=== PATIENT | female | born 1960 | race Caucasian/White ===

== ENCOUNTER → 2016-12-14 | Outpatient (CLI) | payer OTHER ==
[~2016-12-14] MED LIST: DORZ2SOL20 OPB; LATA0.009 OPB; LOSA50TA6 PO; METF1TAB53 PO; SIMV40TA2 PO
[2016-12-14 13:02] LABS: ESTIMATED AVERAGE GLUCOSE 137 mg/dl; HA1C FLAG Normal (Normal)
[2016-12-14 13:07] LABS: CALCIUM 9.1 mg/dl (8.5-10.1)
[2016-12-14 13:11] LABS: BLOOD UREA NITROGEN 48 mg/dl (7-18); BUN/CREATININE RATIO 34.1 (10-20); CARBON DIOXIDE 22 mmol/L (21-32); CHLORIDE 106 mmol/L (98-107); CHOLESTEROL 141 mg/dl (0-200); GLUCOSE 119 mg/dl (70-99); POTASSIUM 4.2 mmol/L (3.5-5.1); SODIUM 137 mmol/L (136-145); TRIGLYCERIDES 110 mg/dl (0-150); VERY LOW DENSITY LIPOPROT CALC 22 mg/dl
[2016-12-14 13:17] LABS: CHOLESTEROL/HDL RATIO 3.2; HDL CHOLESTEROL 44 mg/dl; LDL CHOLESTEROL CALCULATED 75 mg/dl
== END | disposition home or self-care (01) ==
LOC: C.LABPVFM 07:18
PROVIDERS: ATTEND Nurse Practitioner
DX: E78.5 Hyperlipidemia, unspecified (principal); I10 Essential (primary) hypertension; E11.9 Type 2 diabetes mellitus without complications

== ENCOUNTER → 2016-12-24 | Outpatient (CLI) | payer OTHER ==
[2016-12-24 12:56] LABS: BASO % 0.3 %; BASO ABS # 0.02 K/uL (0-0.2); COMPLETE YES; EOS % 2.7 %; HEMATOCRIT 28.4 % (37-47); IG% 0.2 %; LYMPH % 14.1 %; LYMPH ABS # 0.88 K/uL (1.2-3.4); MEAN CELL VOLUME 90.4 fL (80-100); MEAN CORPUSCULAR HEMOGLOBIN 30.3 pg (25-34); MEAN CORPUSCULAR HGB CONC 33.5 g/dl (32-36); MEAN PLATELET VOLUME 9.5 fL (7.4-10.4); MONO % 6.9 %; NEUT % 75.8 %; PLATELET COUNT 201 K/uL (130-400); RED BLOOD COUNT 3.14 M/uL (4.2-5.4); WHITE BLOOD COUNT 6.24 K/uL (4.8-10.8)
[2016-12-24 13:32] LABS: URINE PROTIEN/CREAT RATIO 5.4 (0-0.2); URINE TOTAL PROTEIN 102.1 mg/dl (0-11.9)
[2016-12-24 13:46] LABS: URINE APPEARANCE CLEAR (CLEAR); URINE BILIRUBIN NEG (NEG); URINE COLOR YELLOW; URINE NITRITE NEG (NEG); URINE SPECIFIC GRAVITY 1.007 (1.000-1.030); UROBILINOGEN NEG (NEG)
[2016-12-24 13:50] LABS: MANUAL MICROSCOPIC REQUIRED? NO; REVIEW REQ? NO
== END | disposition home or self-care (01) ==
LOC: C.LABPVFM 07:56
PROVIDERS: ATTEND Nurse Practitioner
DX: I10 Essential (primary) hypertension (principal); N28.9 Disorder of kidney and ureter, unspecified; R60.0 Localized edema

== ENCOUNTER → 2016-12-28 | Outpatient (CLI) | payer OTHER ==
[2016-12-28 12:58] LABS: FERRITIN 99.3 ng/ml (8.0-388.0)
== END | disposition home or self-care (01) ==
LOC: C.LABPVFM 07:13
PROVIDERS: ATTEND Nurse Practitioner
DX: D64.9 Anemia, unspecified (principal); R94.6 Abnormal results of thyroid function studies

== ENCOUNTER → 2016-12-29 | Outpatient (CLI) | payer OTHER ==
--- NOTE | 2016-12-29 08:37 | DIAGNOSTIC IMAGING REPORT ---
ULTRASOUND KIDNEYS AND BLADDER CLINICAL HISTORY: Hypertension. Renal insufficiency. COMPARISON STUDY: No priors. TECHNIQUE: Real-time, grayscale, and color flow sonography of the kidneys and bladder is performed. Images are reviewed in the transverse and longitudinal planes. FINDINGS: Kidneys: The kidneys demonstrate mild cortical atrophy and are normal in echotexture. The right kidney measures 11.7 x 5.5 x 6.6 cm and the left kidney measures 12.0 x 5.9 x 6.5 cm. There is no hydronephrosis. No shadowing renal calculi are identified. There is no sonographic evidence of contour deforming renal mass lesion. No perinephric fluid is identified. Bladder: The partially decompressed bladder is grossly normal in appearance. Bilateral ureteral jets were seen. IMPRESSION: 1. The kidneys demonstrate mild cortical atrophy and are without hydronephrosis. 2. The bladder is normal as visualized. Electronically signed by: Pedro Marsh M.D. 12/29/2016 8:36 AM Dictated Date/Time: 12/29/2016 8:35 AM
== END | disposition home or self-care (01) ==
LOC: C.ULTR 07:52
PROVIDERS: ATTEND Nurse Practitioner
DX: I10 Essential (primary) hypertension (principal); N28.9 Disorder of kidney and ureter, unspecified

== ENCOUNTER → 2017-01-26 | Outpatient (CLI) | payer OTHER ==
[2017-01-26 12:58] LABS: URINE TOTAL PROTEIN 179.9 mg/dl (0-11.9)
[2017-01-26 13:35] LABS: URINE TOTAL PROTEIN CALC 3957.8 mg/24 hr (0-149.1)
== END | disposition home or self-care (01) ==
LOC: C.LABPVFM 12:40
PROVIDERS: ATTEND Internal Medicine Nephrology
DX: R80.9 Proteinuria, unspecified (principal)

== ENCOUNTER → 2017-02-06 | Outpatient (CLI) | payer OTHER ==
[2017-02-06 13:22] LABS: BLOOD UREA NITROGEN 48 mg/dl (7-18); BUN/CREATININE RATIO 34.2 (10-20); CALCIUM 8.8 mg/dl (8.5-10.1); CARBON DIOXIDE 22 mmol/L (21-32); CHLORIDE 111 mmol/L (98-107); GLUCOSE 136 mg/dl (70-99); PHOSPHORUS 4.1 mg/dl (2.5-4.9); POTASSIUM 4.7 mmol/L (3.5-5.1); SODIUM 141 mmol/L (136-145)
[2017-02-06 13:36] LABS: THYROID STIMULATING HORMONE 7.06 uIu/ml (0.300-4.500)
== END | disposition home or self-care (01) ==
LOC: C.LABPVFM 07:29
PROVIDERS: ATTEND Nurse Practitioner
DX: Z11.59 Encounter for screening for other viral diseases (principal); R94.6 Abnormal results of thyroid function studies; I10 Essential (primary) hypertension

== ENCOUNTER → 2017-03-06 | Outpatient (CLI) | payer OTHER ==
[2017-03-06 13:11] LABS: BLOOD UREA NITROGEN 52 mg/dl (7-18); BUN/CREATININE RATIO 32.6 (10-20); CALCIUM 8.8 mg/dl (8.5-10.1); CARBON DIOXIDE 26 mmol/L (21-32); CHLORIDE 104 mmol/L (98-107); GLUCOSE 147 mg/dl (70-99); PHOSPHORUS 4.1 mg/dl (2.5-4.9); POTASSIUM 4.5 mmol/L (3.5-5.1); SODIUM 137 mmol/L (136-145)
[2017-03-06 13:52] LABS: URINE APPEARANCE CLEAR (CLEAR); URINE BILIRUBIN NEG (NEG); URINE COLOR YELLOW; URINE EPITHELIAL CELL AUTO >30 /lpf (0-5); URINE NITRITE NEG (NEG); URINE SPECIFIC GRAVITY 1.014 (1.000-1.030); UROBILINOGEN NEG (NEG); ZZUR CULT IF INDIC CLEAN CATCH NO
[2017-03-06 14:03] LABS: MANUAL MICROSCOPIC REQUIRED? NO; REVIEW REQ? NO
[2017-03-07 13:59] LABS: FREE KAPPA/LAMBDA RATIO 1.9 (0.26-1.65); FREE LAMBDA 64.8 MG/L (5.7-26.3)
[2017-03-07 16:37] LABS: ALBUMIN 3.5 G/DL (3.8-4.8); GAMMA GLOBULIN 1.5 G/DL (0.8-1.7); TOTAL PROTEIN 6.9 G/DL (6.2-8.3)
[2017-03-08 10:11] LABS: ALPHA-2-GLOBULIN % 3.58 %; CREATININE UR 29 MG/DL (20-320); GAMMA GLOBULIN % 12.49 %
== END | disposition home or self-care (01) ==
LOC: C.LABPVFM 07:18
PROVIDERS: ATTEND Internal Medicine Nephrology
DX: N18.3 Chronic kidney disease, stage 3 (moderate) (principal); R80.9 Proteinuria, unspecified

== ENCOUNTER → 2017-05-22 | Outpatient (CLI) | payer OTHER ==
[2017-05-22 13:01] LABS: BASO % 0.1 %; BASO ABS # 0.01 K/uL (0-0.2); HEMATOCRIT 25.8 % (37-47); IG% 0.3 %; LYMPH ABS # 1.05 K/uL (1.2-3.4); MEAN CELL VOLUME 90.5 fL (80-100); MEAN CORPUSCULAR HEMOGLOBIN 30.5 pg (25-34); MEAN CORPUSCULAR HGB CONC 33.7 g/dl (32-36); MEAN PLATELET VOLUME 9.8 fL (7.4-10.4); MONO % 7.3 %; NEUT % 74.3 %; PLATELET COUNT 181 K/uL (130-400); RED BLOOD COUNT 2.85 M/uL (4.2-5.4); WHITE BLOOD COUNT 7.02 K/uL (4.8-10.8)
[2017-05-22 13:25] LABS: COMPLETE YES
[2017-05-22 13:52] LABS: BLOOD UREA NITROGEN 51 mg/dl (7-18); BUN/CREATININE RATIO 32.6 (10-20); CALCIUM 8.8 mg/dl (8.5-10.1); CARBON DIOXIDE 21 mmol/L (21-32); CHLORIDE 106 mmol/L (98-107); CREATININE 1.55 mg/dl (0.60-1.20); GLUCOSE 118 mg/dl (70-99); POTASSIUM 4.2 mmol/L (3.5-5.1); SODIUM 136 mmol/L (136-145)
[2017-05-22 13:57] LABS: FERRITIN 125.1 ng/ml (8.0-388.0); PHOSPHORUS 3.7 mg/dl (2.5-4.9); TOTAL IRON BINDING CAPACITY 292 mcg/dl (250-450)
== END | disposition home or self-care (01) ==
LOC: C.LABPVFM 07:17
PROVIDERS: ATTEND Internal Medicine Nephrology
DX: E03.9 Hypothyroidism, unspecified (principal); N18.3 Chronic kidney disease, stage 3 (moderate); D64.9 Anemia, unspecified

== ENCOUNTER → 2017-05-26 | Outpatient (CLI) | payer OTHER ==
--- NOTE | 2017-05-29 14:55 | MAMMOGRAPHY REPORT ---
BILATERAL FIRST EVER DIGITAL SCREENING MAMMOGRAM TOMOSYNTHESIS WITH CAD: 05/26/2017 CLINICAL HISTORY: Routine screening. Baseline exam. TECHNIQUE: Breast tomosynthesis in addition to standard 2D mammography was performed. Current study was also evaluated with a Computer Aided Detection (CAD) system. COMPARISON: No prior exams were available for comparison. BREAST COMPOSITION: The tissue of both breasts is almost entirely fatty. FINDINGS: There is a partially visualized right axillary lymph node measuring at least 11 mm seen on the MLO view, for which additional spot compression tomosynthesis views and possible breast ultrasoun d are recommended to ensure that the lymph node is morphologically normal. The remainder of both breasts are negative, without suspicious masses, calcifications, or areas of ar chitectural distortion noted. Scattered bilateral benign-appearing calcifications are noted. IMPRESSION: ACR BI-RADS CATEGORY 0: INCOMPLETE EVALUATION: NEED ADDITIONAL IMAGING EVALUATION Partially visualized right axillary lymph node, for which additional imaging evaluation is recommende d. The patient will be called to schedule an appointment. Approximately 10% of breast cancers are not detected with mammography. A negative mammographic report should not delay biopsy if a clinically suggestive mass is present. Ning Ramires M.D. ah/:05/26/2017 16:57:58 Smt Operator: Liana HICKMAN(Isaura)(M), [facility] letter sent: Addl Imaging 0 BI-RADS Code: ACR BI-RADS Category 0: Incomplete Evaluation: Need Additional Imaging Evaluation
== END | disposition home or self-care (01) ==
LOC: C.MAMM 14:38
PROVIDERS: ATTEND Nurse Practitioner
DX: Z12.31 Encounter for screening mammogram for malignant neoplasm of breast (principal); R92.8 Other abnormal and inconclusive findings on diagnostic imaging of breast

== ENCOUNTER → 2017-07-03 | Outpatient (CLI) | payer OTHER ==
[2017-07-03 12:45] LABS: BASO % 0.2 %; BASO ABS # 0.01 K/uL (0-0.2); COMPLETE YES; EOS % 3.4 %; HEMATOCRIT 27.3 % (37-47); IG% 0.3 %; IMMATURE RETIC FRACTION 22.7 % (3.0-15.9); LYMPH % 19.3 %; LYMPH ABS # 1.14 K/uL (1.2-3.4); MEAN CELL VOLUME 94.8 fL (80-100); MEAN CORPUSCULAR HEMOGLOBIN 31.3 pg (25-34); MEAN PLATELET VOLUME 9.9 fL (7.4-10.4); MONO % 6.3 %; NEUT % 70.5 %; PLATELET COUNT 198 K/uL (130-400); RED BLOOD COUNT 2.88 M/uL (4.2-5.4); RETHE 31.7 PG (28.2-36.6); WHITE BLOOD COUNT 5.91 K/uL (4.8-10.8)
[2017-07-03 13:46] LABS: BLOOD UREA NITROGEN 57 mg/dl (7-18); BUN/CREATININE RATIO 30.3 (10-20); CALCIUM 8.8 mg/dl (8.5-10.1); CARBON DIOXIDE 23 mmol/L (21-32); CHLORIDE 106 mmol/L (98-107); CREATININE 1.88 mg/dl (0.60-1.20); GLUCOSE 144 mg/dl (70-99); MAGNESIUM 2.1 mg/dl (1.8-2.4); POTASSIUM 4.9 mmol/L (3.5-5.1); SODIUM 133 mmol/L (136-145)
[2017-07-03 13:47] LABS: PHOSPHORUS 4.3 mg/dl (2.5-4.9)
[2017-07-03 14:25] LABS: CREATININE, URINE 22.7 mg/dl; URINE PROTIEN/CREAT RATIO 2.4 (0-0.2); URINE TOTAL PROTEIN 55.1 mg/dl (0-11.9)
== END | disposition home or self-care (01) ==
LOC: C.LABPVFM 07:17
PROVIDERS: ATTEND Internal Medicine Nephrology
DX: D64.9 Anemia, unspecified (principal)

== ENCOUNTER → 2017-08-07 | Outpatient (CLI) | payer OTHER ==
[2017-08-07 13:21] LABS: ALBUMIN 3.3 gm/dl (3.4-5.0); BLOOD UREA NITROGEN 63 mg/dl (7-18); CALCIUM 8.9 mg/dl (8.5-10.1); CARBON DIOXIDE 21 mmol/L (21-32); CREATININE 1.87 mg/dl (0.60-1.20); GLUCOSE 104 mg/dl (70-99); PHOSPHORUS 4.1 mg/dl (2.5-4.9); POTASSIUM 5.3 mmol/L (3.5-5.1); SODIUM 139 mmol/L (136-145)
== END | disposition home or self-care (01) ==
LOC: C.LABPVFM 07:14
PROVIDERS: ATTEND Internal Medicine Nephrology
DX: E03.9 Hypothyroidism, unspecified (principal); N18.3 Chronic kidney disease, stage 3 (moderate)

== ENCOUNTER → 2017-09-11 | Outpatient (CLI) | payer OTHER ==
[2017-09-11 12:40] LABS: BLOOD UREA NITROGEN 75 mg/dl (7-18); CALCIUM 9.3 mg/dl (8.5-10.1); CARBON DIOXIDE 17 mmol/L (21-32); CREATININE 2.15 mg/dl (0.60-1.20); GLUCOSE 146 mg/dl (70-99); POTASSIUM 5.8 mmol/L (3.5-5.1); SODIUM 135 mmol/L (136-145)
== END | disposition home or self-care (01) ==
LOC: C.LABPVFM 07:11
PROVIDERS: ATTEND Internal Medicine Nephrology
DX: N18.3 Chronic kidney disease, stage 3 (moderate) (principal)

== ENCOUNTER → 2017-09-13 | Outpatient (CLI) | payer OTHER ==
[2017-09-13 16:05] LABS: ALBUMIN 3.5 gm/dl (3.4-5.0); BLOOD UREA NITROGEN 69 mg/dl (7-18); CALCIUM 9.3 mg/dl (8.5-10.1); CARBON DIOXIDE 20 mmol/L (21-32); CREATININE 2.08 mg/dl (0.60-1.20); GLUCOSE 99 mg/dl (70-99); POTASSIUM 5.6 mmol/L (3.5-5.1); SODIUM 139 mmol/L (136-145)
[2017-09-13 16:06] LABS: PHOSPHORUS 4.7 mg/dl (2.5-4.9)
== END | disposition home or self-care (01) ==
LOC: C.LAB 16:30
PROVIDERS: ATTEND Internal Medicine Nephrology
DX: N18.3 Chronic kidney disease, stage 3 (moderate) (principal)

== ENCOUNTER → 2017-09-25 | Outpatient (CLI) | payer OTHER ==
[2017-09-25 12:55] LABS: ALBUMIN 3.4 gm/dl (3.4-5.0); BLOOD UREA NITROGEN 68 mg/dl (7-18); CALCIUM 9.1 mg/dl (8.5-10.1); CARBON DIOXIDE 22 mmol/L (21-32); CREATININE 1.94 mg/dl (0.60-1.20); GLUCOSE 159 mg/dl (70-99); PHOSPHORUS 4.3 mg/dl (2.5-4.9); SODIUM 138 mmol/L (136-145)
== END | disposition home or self-care (01) ==
LOC: C.LABPVFM 07:12
PROVIDERS: ATTEND Internal Medicine Nephrology
DX: I10 Essential (primary) hypertension (principal)

== ENCOUNTER → 2017-10-09 | Outpatient (CLI) | payer OTHER ==
[2017-10-09 12:47] LABS: HEMOGLOBIN A1C 6.8 % (4.5-5.6)
[2017-10-09 13:00] LABS: ALBUMIN 3.3 gm/dl (3.4-5.0); BLOOD UREA NITROGEN 51 mg/dl (7-18); CALCIUM 9.5 mg/dl (8.5-10.1); CARBON DIOXIDE 23 mmol/L (21-32); CREATININE 1.83 mg/dl (0.60-1.20); GLUCOSE 131 mg/dl (70-99); PHOSPHORUS 3.8 mg/dl (2.5-4.9); SODIUM 136 mmol/L (136-145)
== END | disposition home or self-care (01) ==
LOC: C.LABPVFM 07:12
PROVIDERS: ATTEND Nurse Practitioner
DX: E78.5 Hyperlipidemia, unspecified (principal); E11.69 Type 2 diabetes mellitus with other specified complication; E11.22 Type 2 diabetes mellitus with diabetic chronic kidney disease; N18.3 Chronic kidney disease, stage 3 (moderate)

== ENCOUNTER → 2017-11-15 | Outpatient (CLI) | payer OTHER ==
[2017-11-15 09:25] LABS: BLOOD UREA NITROGEN 77 mg/dl (7-18); CALCIUM 9.2 mg/dl (8.5-10.1); CARBON DIOXIDE 20 mmol/L (21-32); CREATININE 2.19 mg/dl (0.60-1.20); GLUCOSE 154 mg/dl (70-99); POTASSIUM 4.5 mmol/L (3.5-5.1); SODIUM 140 mmol/L (136-145)
== END | disposition home or self-care (01) ==
LOC: C.LAB 16:20
PROVIDERS: ATTEND Internal Medicine Nephrology
DX: N18.3 Chronic kidney disease, stage 3 (moderate) (principal)

== ENCOUNTER → 2017-11-28 | Outpatient (CLI) | payer OTHER ==
--- NOTE | 2017-11-28 12:46 | MAMMOGRAPHY REPORT ---
UNILATERAL RIGHT DIGITAL DIAGNOSTIC MAMMOGRAM TOMOSYNTHESIS WITH CAD AND TARGETED RIGHT ULTRASOUND: CLINICAL HISTORY: 57-year-old woman presents for follow-up in the right breast/axilla, for a right ax illary tail/axillary lymph node that was newly visualized on the previous exam performed 05/26/2017. TECHNIQUE: Right breast tomosynthesis in addition to standard 2D mammography was performed. Current s vikki was also evaluated with a Computer Aided Detection (CAD) system. COMPARISON: Comparison is made to exams dated: 05/31/2017 mammogram, 05/31/2017 ultrasound, and 2016 mammogram - [facility]. BREAST COMPOSITION: The tissue of the right breast is almost entirely fatty. FINDINGS: An oval circumscribed 13 mm lymph node with central lucency is again identified in the supe rior posterior right breast, projecting over the pectoralis muscle on the MLO view. This is not visu alized in the CC projection. The lymph node is stable in size and appearance comparing to the spot c ompression tomosynthesis view obtained on 05/31/2017, and this most likely represents a newly visualiz ed lymph node as opposed to a new, abnormal lymph node. There are scattered benign rim and punctate microcalcifications in the right breast. No suspicious breast mass, architectural distortion or susp icious microcalcifications. Repeat targeted ultrasound was performed in the right upper outer quadrant and axillary region to kristian ssess the previously observed lymph node. In the midportion of the right axilla, a morphologically n ormal lymph node within the cortex measuring 1.7 mm is identified. The previously observed lymph nod e which corresponds with the mammographic finding is seen in the right axillary tail region, previous ly labeled right 9:00 breast, 15 cm from the nipple. This lymph node is unchanged in size and visual appearance. It currently measures 9.6 mm in length and has cortical thickness ranging from 2.2-2.6 mm. This is within the range of normal but given that this lymph node was newly visualized mammograp hically, another close follow-up is recommended to ensure longer stability. IMPRESSION: ACR-BI-RADS CATEGORY 3: PROBABLY BENIGN, TARGETED ULTRASOUND ACR-BI-RADS CATEGORY 3: PRO BABLY BENIGN There is a minimally prominent right axillary tail lymph node, visualized mammographically on the MLO view, that demonstrates normal morphology on ultrasound, with maximum cortical thickness of 2.6 mm o n the current exam. Given the mammographic and sonographic stability since the prior diagnostic work up dated 05/31/2017 this most likely represents a benign lymph node. Given slight prominence and new visualization mammographically, another six-month follow-up right diagnostic tomosynthesis mammogram and possible ultrasound is recommended to ensure longer stability. Annual left mammography will also be due at that time. These results and recommendations were discussed with the patient at the time of the exam. Approximately 10% of breast cancers are not detected with mammography. A negative mammographic report should not delay biopsy if a clinically suggestive mass is present. Claudette Ghotra M.D. ay/:11/28/2017 09:40:50 Haul Truck Driver: Gaby ESTRADA)([place]), [facility] letter sent: Follow Up Recommended 3 BI-RADS Code: ACR-BI-RADS Category 3: Probably Benign Ultrasound BI-RADS: ACR-BI-RADS Category 3: Pr obably Benign
== END | disposition home or self-care (01) ==
LOC: C.MAMM 08:08
PROVIDERS: ATTEND Nurse Practitioner
DX: R59.0 Localized enlarged lymph nodes (principal)